=== PATIENT | female | born 1995 | race Caucasian/White ===

== ENCOUNTER 2019-12-21 09:58 | Emergency (ER) | payer MEDICAID, OTHER ==
[~2019-12-21] VITALS: Ht 167.6 cm; Wt 79.8 kg
[2019-12-21] MEDS ORDERED: SODIUM CHLORIDE 0.9% 1,000 ML IV ONE (11:15)
[2019-12-21 15:23] LABS: Albumin 4.4 g/dL (3.4-5.0); BUN/Creatinine Ratio 14.9; Calcium 8.9 mg/dL (8.5-10.1); Potassium 3.4 mmol/L (3.5-5.1)
[2019-12-21 15:25] LABS: Basophils # (auto) 0.1 10 ^3/uL (0-0.2); Basophils % (auto) 0.6 % (0.0-2.0); Eosinophils # (auto) 0 10 ^3/uL (0-0.8); Eosinophils % (auto) 0.4 % (0.0-7.0); Hematocrit 38.7 % (36.0-46.0); Hemoglobin 13.3 g/dL (12.2-16.2); Lymphocytes # (auto) 1.9 10 ^3/uL (0.4-5.4); Lymphocytes % (auto) 22.4 % (10.0-50.0); Mean Corpuscular Hemoglobin 27.5 pg (28.0-32.0); Mean Corpuscular Hgb Conc. 34.4 g/dL (32.0-36.0); Mean Corpuscular Volume 79.9 fL (80.0-100.0); Monocytes # (auto) 0.5 10 ^3/uL (0-1.3); Monocytes % (auto) 6.3 % (0.0-12.0); Neutrophils # (auto) 6.1 10 ^3/uL (1.6-8.6); Neutrophils % (auto) 70.3 % (37.0-80.0); Platelet Count (auto) 351 10^3/uL (140-450); Red Blood Cells 4.84 10^6/uL (4.0-5.20); Red Cell Distribution Width 13.6 % (11.8-14.3); White Blood Cell 8.7 10^3/uL (4.4-10.8)
[2019-12-21 15:32] LABS: Bilirubin, Total 0.7 mg/dL (0.2-1.0); Total Protein 8.5 g/dL (6.4-8.2)
[2019-12-21 16:00] VITALS: BP 121/74
[2019-12-21] MEDS ORDERED: POTASSIUM EFFERVESENT TAB 25 MEQ PO ONE (16:00)
== END 2019-12-21 16:48 | disposition home or self-care (01) ==
LOC: ER 09:58
DX: R10.9 Unspecified abdominal pain (principal); E87.6 Hypokalemia
CPT/HCPCS: 36415; 71045; 74176; 80053; 85025; 96360; 99285; J7030

== ENCOUNTER 2021-09-12 21:20 | Emergency (ER) | payer OTHER, MEDICAID ==
[~2021-09-12] VITALS: Ht 167.6 cm; Wt 77.2 kg
[2021-09-12 22:59] LABS: Basophils # (auto) 0 10 ^3/uL (0-0.2); Basophils % (auto) 0.2 % (0.0-2.0); Eosinophils # (auto) 0 10 ^3/uL (0-0.8); Hematocrit 40.3 % (36.0-46.0); Hemoglobin 13.5 g/dL (12.2-16.2); Lymphocytes % (auto) 15.9 % (10.0-50.0); Mean Corpuscular Hemoglobin 26.6 pg (28.0-32.0); Mean Corpuscular Hgb Conc. 33.6 g/dL (32.0-36.0); Mean Corpuscular Volume 79.1 fL (80.0-100.0); Monocytes # (auto) 0.2 10 ^3/uL (0-1.3); Monocytes % (auto) 3.9 % (0.0-12.0); Neutrophils # (auto) 4.9 10 ^3/uL (1.6-8.6); Nucleated Red Blood Cells % 0.1 %; Red Cell Distribution Width 14.9 % (11.8-14.3); White Blood Cell 6.1 10^3/uL (4.4-10.8)
[2021-09-12 23:14] LABS: Albumin 4.2 g/dL (3.4-5.0); BUN/Creatinine Ratio 12.5; Calcium 9.5 mg/dL (8.5-10.1); Potassium 3.7 mmol/L (3.5-5.1)
[2021-09-12 23:17] LABS: Bilirubin, Total 0.7 mg/dL (0.2-1.0); Total Protein 8.4 g/dL (6.4-8.2)
[2021-09-13] MEDS ORDERED: ONDANSETRON HCL 4 MG/2 ML VIAL IV ONE (01:30)
[2021-09-13] MEDS ORDERED: ONDA-144 PO (02:59)
[2021-09-13] MEDS ORDERED: PERCOT PO (02:59)
[2021-09-13] MEDS ORDERED: CIPR-173 PO (02:59)
[2021-09-13] MEDS ORDERED: FAMO20TA10 PO (02:59)
[2021-09-13 03:27] VITALS: BP 131/53
[2021-09-13 03:54] LABS: Urine Bacteria NONE SEEN /hpf (None Seen); Urine Blood Negative /uL (Negative); Urine Mucus FEW (None Seen); Urine WBC 1 /hpf (0 - 5)
== END 2021-09-13 03:30 | disposition home or self-care (01) ==
LOC: ER 21:20
DX: K29.70 Gastritis, unspecified, without bleeding (principal)
CPT/HCPCS: 36415; 71045; 74176; 80053; 81001; 83690; 85025; 96374; 99285; J2405

== ENCOUNTER 2021-09-15 08:35 | Emergency (ER) | payer OTHER, MEDICAID ==
[~2021-09-15] VITALS: Ht 167.6 cm; Wt 75.0 kg
[~2021-09-15 08:35] MED LIST: CIPR-173 PO; FAMO20TA10 PO; ONDA-144 PO; PERCOT PO
[2021-09-15] MEDS ORDERED: ONDANSETRON ODT 4 MG TAB PO ONE (09:00)
[2021-09-15] MEDS ORDERED: PANTOPRAZOLE 40 MG TAB PO ONE (09:00)
[2021-09-15 11:06] LABS: Basophils # (auto) 0 10 ^3/uL (0-0.2); Eosinophils # (auto) 0 10 ^3/uL (0-0.8); Lymphocytes # (auto) 1.5 10 ^3/uL (0.4-5.4); White Blood Cell 7.5 10^3/uL (4.4-10.8)
[2021-09-15 11:09] LABS: Basophils % (auto) 0.6 % (0.0-2.0); Hematocrit 40.6 % (36.0-46.0); Hemoglobin 13.5 g/dL (12.2-16.2); Lymphocytes % (auto) 19.9 % (10.0-50.0); Mean Corpuscular Hemoglobin 26.1 pg (28.0-32.0); Mean Corpuscular Hgb Conc. 33.4 g/dL (32.0-36.0); Mean Corpuscular Volume 78.4 fL (80.0-100.0); Monocytes # (auto) 0.5 10 ^3/uL (0-1.3); Monocytes % (auto) 6.1 % (0.0-12.0); Neutrophils # (auto) 5.5 10 ^3/uL (1.6-8.6); Neutrophils % (auto) 73.4 % (37.0-80.0); Nucleated Red Blood Cells % 0.1 %; Red Blood Cells 5.18 10^6/uL (4.0-5.20); Red Cell Distribution Width 14.1 % (11.8-14.3)
[2021-09-15 11:15] LABS: Albumin 4.4 g/dL (3.4-5.0); Potassium 3.9 mmol/L (3.5-5.1)
[2021-09-15 11:17] LABS: Alcohol, Urine < 3.0 mg/dL (0-10); Amphetamine Screen, Urine NEGATIVE (NEGATIVE); Barbiturate Scree,Urine NEGATIVE (NEGATIVE); Benzodiazephine Screen, Urine NEGATIVE (NEGATIVE); Cannabinoid Screen, Urine POSITIVE (NEGATIVE); Cocaine Screen, Urine NEGATIVE (NEGATIVE); Opiate Scree,Urine NEGATIVE (NEGATIVE); Phencyclidine Screen, Urine NEGATIVE (NEGATIVE)
[2021-09-15 11:19] LABS: Total Protein 8.6 g/dL (6.4-8.2)
[2021-09-15 12:36] LABS: Urine Bacteria FEW /hpf (None Seen); Urine Blood Negative /uL (Negative); Urine Mucus FEW (None Seen); Urine Specific Gravity 1.036 (1.001-1.035); Urine WBC 11 /hpf (0 - 5)
[2021-09-15] MEDS ORDERED: NITR-87 PO (13:22)
[2021-09-15] MEDS ORDERED: ONDA-144 PO (13:22)
[2021-09-15 13:30] VITALS: BP 130/62
== END 2021-09-15 13:32 | disposition home or self-care (01) ==
LOC: ER 08:46
DX: N39.0 Urinary tract infection, site not specified (principal); R11.2 Nausea with vomiting, unspecified; Z79.2 Long term (current) use of antibiotics; Z79.899 Other long term (current) drug therapy
CPT/HCPCS: 36415; 76705; 80053; 80307; 81001; 82150; 83690; 85025; 99284; Q0162